=== PATIENT | male | born 1970 | race Caucasian/White ===

== ENCOUNTER 2018-01-26 07:51 | Emergency (ER) | payer MEDICAID ==
[~2018-01-26] VITALS: Ht 185.4 cm; Wt 100.0 kg
[~2018-01-26 07:51] MED LIST: CLIN-79 PO; FOLI1TAB16 PO; THI100T PO
[2018-01-26 07:53] VITALS: BP 151/104
[2018-01-26] MEDS ORDERED: CefTRIAXone 250MG inj IM ONE (08:10)
[2018-01-26] MEDS ORDERED: DOXY100C43 PO (08:10)
[2018-01-26] MEDS ORDERED: CefTRIAXone 250MG IM Kit w/LIDOcaine IM ONE (08:15)
[2018-01-26 08:19] LABS: CLARITY,URINE CLEAR (Clear); COLOR,URINE YELLOW (Yellow); GLUCOSE, URINE NEGATIVE (Neg); KETONES,URINE NEGATIVE (Neg); LEUKOCYTE ESTERASE ,URINE NEGATIVE (Neg); NITRITES, URINE NEGATIVE (Neg); OCCULT BLOOD,URINE NEGATIVE (Neg); PROTEIN,URINE NEGATIVE (Neg); UROBILINOGEN,URINE 0.2 E.U/dL (0.2-1.0)
[2018-01-26 08:21] LABS: UA COLLECTION TYPE CLN CATCH MIDSTREAM
== END 2018-01-26 08:42 | disposition home or self-care (01) ==
LOC: ER 07:52
DX: A64 Unspecified sexually transmitted disease (principal); F12.10 Cannabis abuse, uncomplicated; F15.10 Other stimulant abuse, uncomplicated; Z79.899 Other long term (current) drug therapy
CPT/HCPCS: 36415; 81003; 87491; 87591; 96372; 99284; J0696

== ENCOUNTER 2020-06-22 15:22 | Emergency (ER) | payer MEDICAID ==
[~2020-06-22] VITALS: Ht 185.4 cm; Wt 109.1 kg
[~2020-06-22 15:22] MED LIST changes: -CLIN-79 PO; +CLIN150C8 PO
[2020-06-22] MEDS ORDERED: normal saline 1000ML IV soln IV ONE (15:45)
[2020-06-22] MEDS ORDERED: acetaminophen 325mg tablet PO STA (16:09)
[2020-06-22 16:17] LABS: BASOPHILS % (AUTO) 0.2 % (0-1); EOSINOPHILS % (AUTO) 0.1 % (0-6); HEMATOCRIT 46.7 % (42.0-52.0); HEMOGLOBIN 15.8 g/dl (14.0-17.9); LYMPHOCYTES % (AUTO) 8.1 % (21-51); MEAN CORPUSCULAR HEMOGLOBIN 27.9 PG (27.0-31.0); MEAN CORPUSCULAR HGB CONC 33.9 g/dL (33.0-36.5); MEAN CORPUSCULAR VOLUME 82.5 FL (78-98); MEAN PLATELET VOLUME 8.9 FL (7.4-10.4); MONOCYTES # (AUTO) 1.2 X10'3 (0-0.9); MONOCYTES % (AUTO) 9.8 % (2-12); NEUTROPHILS # (AUTO) 9.8 X10'3 (1.8-7.7); NEUTROPHILS % (AUTO) 81.8 % (42-75); PLATELET COUNT 258 X10'3 (140-440); RED BLOOD COUNT 5.65 X10'6 (4.70-6.10); RED CELL DISTRIBUTION WIDTH 13.4 % (11.5-14.5)
[2020-06-22 16:27] LABS: ALANINE AMINOTRANSFERASE 45 U/L (12-78); ALBUMIN 3.7 G/DL (3.4-5.0); ALBUMIN/GLOBULIN RATIO 0.9 (1.1-1.5); ALKALINE PHOSPHATASE 109 IU/L (46-116); ANION GAP 7 (8-16); ASPARTATE AMINO TRANSFERASE 18 U/L (10-37); BLOOD UREA NITROGEN 12 MG/DL (7-18); BUN/CREATININE RATIO 10.9 (5.4-32.0); CALCIUM 9.4 MG/DL (8.5-10.1); CHLORIDE 98 MMOL/L (99-107); GLUCOSE 130 MG/DL (70-104); POTASSIUM 3.9 MMOL/L (3.5-5.1); SODIUM 131 MMOL/L (135-145); TOTAL CARBON DIOXIDE 25.6 MMOL/L (24-32); TOTAL PROTEIN 7.7 G/DL (6.4-8.2); eGFR 71 ML/MIN
[2020-06-22] MEDS ORDERED: azithromycin/NS 500mg/250ml 250 ML IV ONE (16:40)
[2020-06-22] MEDS ORDERED: CefTRIAXone 2gm/D5W 50ml 50 ML IV ONE (16:40)
--- NOTE | 2020-06-22 18:40 | NUR ---
CALL TONI FOR RIDD [phone]
[2020-06-22 19:37] VITALS: BP 121/79
== END 2020-06-22 19:38 | disposition home or self-care (01) ==
LOC: ER 15:22
DX: B34.9 Viral infection, unspecified (principal); R50.9 Fever, unspecified; R52 Pain, unspecified; Z20.828 Contact with and (suspected) exposure to other viral communicable diseases; F12.90 Cannabis use, unspecified, uncomplicated; F15.90 Other stimulant use, unspecified, uncomplicated; Z98.890 Other specified postprocedural states; Z79.2 Long term (current) use of antibiotics; Z79.899 Other long term (current) drug therapy
CPT/HCPCS: 36415; 71045; 80053; 83605; 84145; 85025; 87040; 87491; 87591; 87635; 93005; 96361; 96365; 96375; 99285; C9803; J0456; J0696; J7030; 96368

== ENCOUNTER 2020-08-27 23:43 | Emergency (ER) | payer MEDICAID ==
[~2020-08-27] VITALS: Ht 185.4 cm; Wt 102.0 kg
[2020-08-28 00:12] LABS: EOSINOPHILS # (AUTO) 0.2 X10'3 (0-0.9); HEMOGLOBIN 14.2 g/dl (14.0-17.9); MONOCYTES # (AUTO) 1.1 X10'3 (0-0.9); WHITE BLOOD COUNT 9.9 X10'3 (4.5-11.0)
[2020-08-28 00:13] LABS: BASOPHILS % (AUTO) 0.4 % (0-1); EOSINOPHILS % (AUTO) 2.2 % (0-6); HEMATOCRIT 41.9 % (42.0-52.0); LYMPHOCYTES # (AUTO) 2.2 X10'3 (1.1-4.8); LYMPHOCYTES % (AUTO) 22.4 % (21-51); MEAN CORPUSCULAR HEMOGLOBIN 28.5 PG (27.0-31.0); MEAN PLATELET VOLUME 8.9 FL (7.4-10.4); MONOCYTES % (AUTO) 10.8 % (2-12); NEUTROPHILS # (AUTO) 6.3 X10'3 (1.8-7.7); NEUTROPHILS % (AUTO) 64.2 % (42-75); PLATELET COUNT 276 X10'3 (140-440); RED BLOOD COUNT 4.98 X10'6 (4.70-6.10); RED CELL DISTRIBUTION WIDTH 13.5 % (11.5-14.5)
[2020-08-28 00:24] LABS: ALANINE AMINOTRANSFERASE 51 U/L (12-78); ALBUMIN 3.8 G/DL (3.4-5.0); ALKALINE PHOSPHATASE 109 IU/L (46-116); ANION GAP 6 (8-16); ASPARTATE AMINO TRANSFERASE 21 U/L (10-37); BILIRUBIN,TOTAL 1.2 MG/DL (0.1-1.0); BLOOD UREA NITROGEN 18 MG/DL (7-18); BUN/CREATININE RATIO 16.4 (5.4-32.0); CALCIUM 9.6 MG/DL (8.5-10.1); CHLORIDE 104 MMOL/L (99-107); GLUCOSE 99 MG/DL (70-104); POTASSIUM 4.1 MMOL/L (3.5-5.1); SODIUM 139 MMOL/L (135-145); TOTAL CARBON DIOXIDE 29.3 MMOL/L (24-32); TOTAL PROTEIN 7.6 G/DL (6.4-8.2); eGFR 71 ML/MIN
[2020-08-28] MEDS ORDERED: TETanus/Pertussis (Acell)/Diphther VAC/PF (Tdap-Adult) 0.5ml syringe IMVAC ONE (01:55)
[2020-08-28] MEDS ORDERED: LIDOcaine 1% W/epiNEPHrine 1:200,000 10ml vial IJ ONE (01:55)
[2020-08-28] MEDS ORDERED: HYDROcodone/acetaminophen 10/325mg tab PO ONE (01:55)
[2020-08-28] MEDS ORDERED: sulfamethoxazole/trimethoprim DS (800/160mg) tablet PO ONE (01:55)
[2020-08-28] MEDS ORDERED: naproxen 500mg tablet PO ONE (01:55)
[2020-08-28] MEDS ORDERED: LIDOcaine 1% w/epiNEPHrine 1:200,000 30ml vial IJ ONE (02:00)
--- NOTE | 2020-08-28 02:21 | NUR ---
PT STATES THAT HE HAS A SAFE RIDE HOME.
[2020-08-28] MEDS ORDERED: chlordiazePOXIDE 25mg capsule PO ONE ×2 (02:40→03:10)
[2020-08-28] MEDS ORDERED: LORazepam 1 MG tablet PO ONE (02:40)
[2020-08-28] MEDS ORDERED: HYDR-3965 PO (02:42)
[2020-08-28] MEDS ORDERED: SULF1TAB49 PO (02:42)
[2020-08-28] MEDS ORDERED: NAPR-56 PO (02:42)
[2020-08-28 03:45] VITALS: BP 135/65
--- NOTE | 2020-08-28 03:52 | NUR ---
TROPOPIN NEG 2ND
== END 2020-08-28 03:53 | disposition home or self-care (01) ==
LOC: ER 23:44
DX: L02.412 Cutaneous abscess of left axilla (principal); R07.9 Chest pain, unspecified; F15.10 Other stimulant abuse, uncomplicated; F12.10 Cannabis abuse, uncomplicated; Z79.899 Other long term (current) drug therapy
CPT/HCPCS: 10060; 36415; 71045; 80053; 83880; 84484; 85025; 90471; 90715; 93005; 99285

== ENCOUNTER 2020-12-26 11:58 | Emergency (ER) | payer MEDICAID ==
[~2020-12-26] VITALS: Ht 185.4 cm; Wt 100.0 kg
[2020-12-26 12:00] VITALS: BP 141/82
[2020-12-26] MEDS ORDERED: azithromycin 250mg tablet PO ONE (13:00)
[2020-12-26] MEDS ORDERED: CEFTRIAXONE 500 MG VIAL IM ONE (13:00)
[2020-12-26 13:10] LABS: CLARITY,URINE CLOUDY (Clear); COLOR,URINE YELLOW (Yellow); GLUCOSE, URINE NEGATIVE (Neg); KETONES,URINE NEGATIVE (Neg); LEUKOCYTE ESTERASE ,URINE NEGATIVE (Neg); NITRITES, URINE NEGATIVE (Neg); OCCULT BLOOD,URINE NEGATIVE (Neg); PH,URINE 5.5 (4.8-8.0); PROTEIN,URINE 30 mg/dl (Neg); UROBILINOGEN,URINE 0.2 E.U/dL (0.2-1.0)
[2020-12-26 13:11] LABS: UA COLLECTION TYPE CLN CATCH MIDSTREAM
[2020-12-26 13:17] LABS: MUCUS STRANDS MANY /LPF (Neg); SQUAMOUS EPITHELIAL CELL,UR FEW /LPF (FEW)
[2020-12-26 13:18] LABS: BACTERIA,URINE 1+ /HPF (Neg); RBC,URINE 0-2 /HPF (0-2)
[2020-12-26 13:19] LABS: FINE GRANULAR CAST 0-3 /LPF (NEGATIVE)
== END 2020-12-26 13:55 | disposition home or self-care (01) ==
LOC: ER 11:59
DX: A64 Unspecified sexually transmitted disease (principal); F12.90 Cannabis use, unspecified, uncomplicated; F15.90 Other stimulant use, unspecified, uncomplicated; Z79.899 Other long term (current) drug therapy
CPT/HCPCS: 36415; 81001; 87491; 96372; 99283

== ENCOUNTER 2021-05-20 18:13 | Emergency (ER) | payer MEDICAID ==
[~2021-05-20] VITALS: Ht 185.4 cm; Wt 100.0 kg
[2021-05-20 18:23] VITALS: BP 125/85
[2021-05-20 18:42] LABS: BASOPHILS % (AUTO) 0.5 % (0-1); EOSINOPHILS # (AUTO) 0.2 X10'3 (0-0.9); EOSINOPHILS % (AUTO) 1.8 % (0-6); HEMATOCRIT 50.1 % (42.0-52.0); HEMOGLOBIN 16.9 g/dl (14.0-17.9); LYMPHOCYTES # (AUTO) 2.3 X10'3 (1.1-4.8); MEAN CORPUSCULAR HEMOGLOBIN 28.3 PG (27.0-31.0); MEAN CORPUSCULAR HGB CONC 33.6 g/dL (33.0-36.5); MEAN CORPUSCULAR VOLUME 84.2 FL (78-98); MEAN PLATELET VOLUME 9.4 FL (7.4-10.4); MONOCYTES % (AUTO) 10.6 % (2-12); NEUTROPHILS # (AUTO) 5.9 X10'3 (1.8-7.7); NEUTROPHILS % (AUTO) 63.1 % (42-75); PLATELET COUNT 353 X10'3 (140-440); RED BLOOD COUNT 5.95 X10'6 (4.70-6.10); RED CELL DISTRIBUTION WIDTH 13.8 % (11.5-14.5); WHITE BLOOD COUNT 9.4 X10'3 (4.5-11.0)
[2021-05-20 18:58] LABS: ALANINE AMINOTRANSFERASE 83 U/L (12-78); ALBUMIN 3.9 G/DL (3.4-5.0); ALBUMIN/GLOBULIN RATIO 0.9 (1.1-1.5); ALKALINE PHOSPHATASE 129 IU/L (46-116); ANION GAP 10 (8-16); ASPARTATE AMINO TRANSFERASE 40 U/L (10-37); BILIRUBIN,TOTAL 1.3 MG/DL (0.1-1.0); BLOOD UREA NITROGEN 30 MG/DL (7-18); CALCIUM 9.3 MG/DL (8.5-10.1); CHLORIDE 104 MMOL/L (99-107); CREATININE 1.25 MG/DL (0.60-1.10); GLUCOSE 111 MG/DL (70-104); POTASSIUM 4.8 MMOL/L (3.5-5.1); SODIUM 139 MMOL/L (135-145); TOTAL CARBON DIOXIDE 25.4 MMOL/L (24-32); TOTAL PROTEIN 8.1 G/DL (6.4-8.2); eGFR 61 ML/MIN
[2021-05-20] MEDS ORDERED: aspirin 81mg tab.chew PO ONE (19:55)
== END 2021-05-20 23:27 | disposition home or self-care (01) ==
LOC: ER 18:13
DX: R07.9 Chest pain, unspecified (principal); R11.0 Nausea; R06.02 Shortness of breath; F17.210 Nicotine dependence, cigarettes, uncomplicated; F12.10 Cannabis abuse, uncomplicated; F15.10 Other stimulant abuse, uncomplicated
CPT/HCPCS: 36415; 71045; 80053; 83880; 84484; 85025; 93005; 99285

== ENCOUNTER 2022-03-13 22:29 | Emergency (ER) | payer MEDICAID ==
[~2022-03-13] VITALS: Ht 185.4 cm; Wt 103.3 kg
[~2022-03-13 22:29] MED LIST changes: -FOLI1TAB16 PO; +FOLI1TAB27 PO
[2022-03-13 23:06] VITALS: BP 148/122
[2022-03-14] MEDS ORDERED: ketorolac trometh inj. 60 MG/2 ML VIAL IM ONE (02:35)
[2022-03-14] MEDS ORDERED: PENI500T2 PO (06:57)
== END 2022-03-14 07:34 | disposition home or self-care (01) ==
LOC: ER 22:30
DX: K04.7 Periapical abscess without sinus (principal); F12.90 Cannabis use, unspecified, uncomplicated; F15.90 Other stimulant use, unspecified, uncomplicated; Z86.711 Personal history of pulmonary embolism; Z79.899 Other long term (current) drug therapy
CPT/HCPCS: 96372; 99283; J1885

== ENCOUNTER 2022-12-19 05:17 | Emergency (ER) | payer MEDICAID ==
[~2022-12-19] VITALS: Ht 185.4 cm; Wt 102.3 kg
[2022-12-19] MEDS ORDERED: CefTRIAXone 2gm/D5W 50ml BAG 50 ML IV ONE (09:00)
[2022-12-19 09:22] VITALS: BP 140/95
[2022-12-19 09:50] LABS: ALANINE AMINOTRANSFERASE 30 U/L (12-78); ALBUMIN 3.6 G/DL (3.4-5.0); ALBUMIN/GLOBULIN RATIO 1.1 (1.1-1.5); ALKALINE PHOSPHATASE 104 IU/L (46-116); ANION GAP 7 (8-16); ASPARTATE AMINO TRANSFERASE 21 U/L (10-37); BILIRUBIN,TOTAL 0.7 MG/DL (0.1-1.0); BLOOD UREA NITROGEN 23 MG/DL (7-18); BUN/CREATININE RATIO 21.5 (10.0-20.0); CALCIUM 9.1 MG/DL (8.5-10.1); CHLORIDE 104 MMOL/L (99-107); CREATININE 1.07 MG/DL (0.60-1.10); GLUCOSE 95 MG/DL (70-104); POTASSIUM 3.8 MMOL/L (3.5-5.1); SODIUM 140 MMOL/L (135-145); TOTAL CARBON DIOXIDE 28.9 MMOL/L (24-32); TOTAL PROTEIN 6.9 G/DL (6.4-8.2); eGFR 73 ML/MIN
[2022-12-19 09:53] LABS: BASOPHILS % (AUTO) 0.5 % (0-1); EOSINOPHILS # (AUTO) 0.2 X10'3 (0-0.9); HEMATOCRIT 40.7 % (42.0-52.0); HEMOGLOBIN 13.8 g/dl (14.0-17.9); LYMPHOCYTES # (AUTO) 2.4 X10'3 (1.1-4.8); LYMPHOCYTES % (AUTO) 32.2 % (21-51); MEAN CORPUSCULAR HEMOGLOBIN 28.3 PG (27.0-31.0); MEAN CORPUSCULAR HGB CONC 33.9 g/dL (33.0-36.5); MEAN CORPUSCULAR VOLUME 83.5 FL (78-98); MEAN PLATELET VOLUME 8.9 FL (7.4-10.4); MONOCYTES # (AUTO) 0.7 X10'3 (0-0.9); MONOCYTES % (AUTO) 9.5 % (2-12); NEUTROPHILS % (AUTO) 54.8 % (42-75); PLATELET COUNT 287 X10'3 (140-440); RED BLOOD COUNT 4.88 X10'6 (4.70-6.10); RED CELL DISTRIBUTION WIDTH 13.4 % (11.5-14.5); WHITE BLOOD COUNT 7.3 X10'3 (4.5-11.0)
[2022-12-19] MEDS ORDERED: SULF1TAB49 PO (10:27)
[2022-12-19] MEDS ORDERED: IBUP-1986 PO (10:27)
== END 2022-12-19 10:58 | disposition home or self-care (01) ==
LOC: ER 05:18
DX: L03.115 Cellulitis of right lower limb (principal); F12.10 Cannabis abuse, uncomplicated; F15.10 Other stimulant abuse, uncomplicated; F17.200 Nicotine dependence, unspecified, uncomplicated; Z88.6 Allergy status to analgesic agent; Z79.899 Other long term (current) drug therapy
CPT/HCPCS: 36415; 73630; 80053; 85025; 96365; 99284; J0696

== ENCOUNTER 2025-03-18 22:55 | Emergency (ER) | payer MEDICAID ==
[~2025-03-18] VITALS: Ht 185.4 cm; Wt 109.1 kg
[~2025-03-18 22:55] MED LIST changes: +CLIN-214 PO; -CLIN150C8 PO; +IBUP-1986 PO
[2025-03-18 23:02] VITALS: TEMP 97.8
--- NOTE | 2025-03-18 23:06 | ELECTROCARDIOGRAPH REPORT ---
[facility] Test Date: 2025-03-18 Test Time: 23:00:16 Pat Name: AME ALARCON Department: EMERGENCY ROOM Room: Gender: M Lunchroom Worker: LILO : 1970 Requested By: ARMAAN ROGEL Order Number: [id number] Reading MD: Measurements Intervals [place] Rate: 89 P: 78 CT: 150 QRS: -63 QRSD: 94 T: 52 QT: 352 QTc: 429 Interpretive Statements Sinus rhythm LAD, consider left anterior fascicular block Please click the below link to view image of tracing.
[2025-03-18 23:21] LABS: BASOPHILS % (AUTO) 0.2 % (0-1); EOSINOPHILS # (AUTO) 0.1 X10'3 (0-0.9); EOSINOPHILS % (AUTO) 1.3 % (0-6); HEMOGLOBIN 13.7 g/dl (14.0-17.9); LYMPHOCYTES # (AUTO) 1.6 X10'3 (1.1-4.8); LYMPHOCYTES % (AUTO) 13.8 % (21-51); MEAN CORPUSCULAR HEMOGLOBIN 27.5 PG (27.0-31.0); MEAN CORPUSCULAR HGB CONC 33.5 g/dL (33.0-36.5); MEAN CORPUSCULAR VOLUME 82.3 FL (78-98); MEAN PLATELET VOLUME 9.1 FL (7.4-10.4); MONOCYTES # (AUTO) 1.3 X10'3 (0-0.9); MONOCYTES % (AUTO) 11.7 % (2-12); NEUTROPHILS # (AUTO) 8.3 X10'3 (1.8-7.7); PLATELET COUNT 260 X10'3 (140-440); RED BLOOD COUNT 4.98 X10'6 (4.70-6.10); RED CELL DISTRIBUTION WIDTH 13.7 % (11.5-14.5); WHITE BLOOD COUNT 11.4 X10'3 (4.5-11.0)
--- NOTE | 2025-03-18 23:22 | RADIOLOGY REPORT ---
CHEST RADIOGRAPH REASON FOR EXAM: CP COMPARISON: None TECHNIQUE: One view of the chest is provided FINDINGS: The cardiomediastinal silhouette is within normal limits for technique. There is no focal a irspace disease. There is no significant pleural effusion. No acute bony abnormality is identified. IMPRESSION: No radiographic evidence of acute cardiopulmonary process.
[2025-03-18 23:38] LABS: ALBUMIN 3.6 G/DL (3.4-5.0); ANION GAP 10 (8-16); BLOOD UREA NITROGEN 20 MG/DL (7-18); BUN/CREATININE RATIO 17.5 (10.0-20.0); CHLORIDE 105 MMOL/L (99-107); CREATININE 1.14 MG/DL (0.60-1.10); GLUCOSE 103 MG/DL (70-104); POTASSIUM 3.8 MMOL/L (3.5-5.1); PRO BRAIN NATRIURETIC PEPTIDE 44 PG/ML (0-125); SODIUM 143 MMOL/L (135-145); TOTAL CARBON DIOXIDE 28.5 MMOL/L (24-32); eCRCL 83 ML/MIN; eGFR 67 ML/MIN
--- NOTE | 2025-03-19 00:26 | Physician Documentation ---
History of Present Illness ~ Chief Complaint: Chest Pain Stated Complaint: CHEST PAIN Time Seen by MD: 00:24 Primary Medical Doctor: Dr. Ventura Mode of Arrival: POV HPI 55-year-old male presenting with chest pain and right toe pain He tells me that earlier today, he had an episode where he was having a sensation of tightness in his chest. A CT has been very stressed recently and wonders if it was related to stress. He did feel short of breath at that time. Currently he denies any chest pain, shortness of breath, dizziness, or other related symptoms. No fevers or productive cough. No leg pain or swelling. He also reports pain to the 1st toe in his right foot. He tells me that over the past several days it has become red and swollen. Medication Reconciliation Allergies: Coded Allergies: ketorolac (Verified Allergy, Intermediate, SORE ARM FOR DAYS, 12/19/22) Scheduled Cephalexin*Monohydrate* (Keflex*), 1 CAP PO Q8H Clindamycin HCl (Clindamycin HCl CAPSULE), 3 CAP PO TID Folic Acid* (Folic Acid*), 2 MG PO DAILY Ibuprofen (Ibuprofen), 1 TAB PO Q8H Sulfamethoxazole/Trimethoprim (Bactrim Ds Tablet), 1 TAB PO Q12H Thiamine Hcl (Thiamine Hcl), 100 MG PO DAILY Past Medical History Past Medical History: Pulmonary Embolism, [place] Past Surgical History: noncontributory, other Alcohol Use: None Drug Use: marijuana, methamphetamine Lives with: Family Lives In: Home Review of Systems Constitutional: Denies: fever Respiratory: Reports: shortness of breath Cardiovascular: Reports: chest pain Gastrointestinal: Denies: abdominal pain Musculoskeletal: Reports: pain, swelling Physical Exam Vital Signs: Temperature: 97.8, Source: Oral, Heart Rate: 79, Respiratory Rate: 16, BP: 141/90, Pulse Oximetry: 98, Weight: 109.090 Physical Exam General: This is a pleasant and mildly anxious appearing middle-aged man HEENT: Atraumatic, oropharynx is moist Heart: Regular rate and rhythm, normal-appearing peripheral perfusion Lungs: Clear breath sounds bilateral, normal work of breathing, normal oxygen saturation on room air Abdomen: Soft, nondistended, nontender all quadrants Extremities: Warm and well-perfused. No lower extremity edema or posterior calf or thigh tenderness. Right foot: The 1st toe, is swollen and erythematous on the dorsal surface and has mild generalized tenderness. There is an open wound at the base of the toe between the 1st and 2nd digits. No purulent drainage at this site. No streaking redness up the foot or leg. Neuro: Alert and oriented, no focal deficits Psychiatric: Appears mildly anxious, but is otherwise pleasant and cooperative with exam Progress Results/Orders Results/Orders Orders - ARMAAN ROGEL MD Chest,Single View (03/18/25 23:04) Monitor (03/18/25 23:04) Saline Lock (03/18/25 23:04) Oxygen (03/18/25 23:04) Completed Orders - ARMAAN ROGEL MD Chest,Single View (03/18/25 23:04) Cbc/Diff (03/18/25:04) BMP (03/18/25 23:04) PBNP (03/18/25 23:04) Electrocardiogram (03/18/25 23:04) Hs Troponin I W Calculations (03/18/25 23:04) Hs Troponin I W Calculations (03/19/25 01:04) Ceftriaxone Im Kit W/Lidocaine (Rocephin (03/19/25 00:50) Mupirocin Ointment (Bactroban Ointment) (03/19/25 02:37) Medications Received in ER Medications (Trade) Dose Ordered Sig/Willy Route PRN Reason Start Time Stop Time Status Last Admin Dose Admin (Rocephin 1GM IM kit (w/lidocaine diluent)) 1,000 mg ONCE ONCE IM 03/19/25 00:50 03/19/25 00:51 DC 03/19/25 01:06 1,000 MG (Bactroban ointment) 1 applic ONCE STAT TP 03/19/25 02:37 03/19/25 02:38 DC 03/19/25 02:44 1 APPLIC Vital Signs 03/18/25 03/19/25 03/19/25 03/19/25 23:02 00:02 00:07 01:08 Temp 97.8 Pulse 88 79 75 Resp 18 18 16 16 B/P (MAP) 148/92 141/90 (107) 139/94 (109) Pulse Ox 99 98 98 O2 Flow Rate 0 03/19/25 02:45 Pulse 77 Resp 16 B/P (MAP) 147/99 Pulse Ox 99 Laboratory Tests Test 03/18/25 23:03 03/19/25 01:29 White Blood Count 11.4 H Red Blood Count 4.98 Hemoglobin 13.7 L Hematocrit 41.0 L Mean Corpuscular Volume 82.3 Mean Corpuscular Hemoglobin 27.5 Mean Corpuscular Hemoglobin Concent 33.5 Red Cell Distribution Width 13.7 Platelet Count 260 Mean Platelet Volume 9.1 Neutrophils (%) (Auto) 73.0 Lymphocytes (%) (Auto) 13.8 L Monocytes (%) (Auto) 11.7 Eosinophils (%) (Auto) 1.3 Basophils (%) (Auto) 0.2 Neutrophils # (Auto) 8.3 H Lymphocytes # (Auto) 1.6 Monocytes # (Auto) 1.3 H Eosinophils # (Auto) 0.1 Basophils # (Auto) 0.0 CBC Comment Sodium Level 143 Potassium Level 3.8 Chloride Level 105 Carbon Dioxide Level 28.5 Anion Gap 10 Blood Urea Nitrogen 20 H Creatinine 1.14 H Estimated GFR/1.73 m2 67 BUN/Creatinine Ratio 17.5 Glucose Level 103 Calcium Level 9.0 Troponin I High Sensitivity 6 6 Pro-B-Type Natriuretic Peptide 44 Albumin 3.6 Chemistry Comments Troponin I High Sens Percent Delta 0 Troponin I Hi Sens Absolute Change 0 EKG/XRAY/CT/US/VASC/MRI EKG : Additional Comment I personally interpreted the EKG and this shows: Sinus rhythm, rate 89, no STEMI or acute ischemic changes Chest X-Ray : Additional Comments I personally reviewed the x-ray, and it shows: No focal consolidation, pulmonary edema or widened mediastinum Medical Decision Making Differential Dx:Considerations: Include: angina, aortic dissection, chest wall pain, cholelithiasis, CHF, costochondritis, pulmonary embolus Additional Information Differential includes anxiety or stress reaction. Differential for the toe includes cellulitis, abscess, septic arthritis, gout Assessment The patient presents with chest pain, which per his history and exam seems most consistent with anxiety or a stress reaction. His workup was unremarkable incl uding no evidence of ACS, no evidence of other dangerous lung process. He is currently asymptomatic. I do not feel that he requires admission for further cardiac testing at this time. He can follow up as an outpatient with his primary care clinic to discuss whether he needs a stress test or other heart testing. Regarding his toe, he clearly has cellulitis to the toe and an open wound between his toes as the source of the infection. He was given a shot of IM ceftriaxone as well as mupirocin for topical treatment. He will be discharged with Bactrim and Keflex. Return precautions given if he does develop worsening signs of infection. Departure Time of Disposition: 02:37 Disposition: 01 HOME / SELF CARE / HOMELESS Impression: Primary Impression: Chest pain Additional Impression: Toe infection Discharge Instructions: Cellulitis, Adult, Nonspecific Chest Pain, Adult Referrals: NO PRIMARY CARE PROVIDER (PCP) Prescriptions Cephalexin*Monohydrate* (Keflex*) 500 Mg Capsule 1 CAP PO Q8H for 10 Days, #30 CAP Prov: ARMAAN ROGEL MD 03/19/25 Sulfamethoxazole/Trimethoprim (Bactrim Ds Tablet) 800 Mg-160 Mg Tablet 1 TAB PO Q12H for 10 Days, #20 TAB Prov: ARMAAN ROGEL MD 03/19/25 Education Educated: Patient Educated regarding: diagnosis, treatment, need for follow up Signature Scribe Signature: [email or web address] Attestation: ARMAAN Springer MD Mar 19, 2025 00:26
[2025-03-19] MEDS: CefTRIAXone 1000mg IM Kit (w/lidocaine diluent) IM ONE (01:06)
[2025-03-19] MEDS ORDERED: CEPH-585 PO (02:39)
[2025-03-19] MEDS ORDERED: SULF1TAB49 PO (02:39)
[2025-03-19] MEDS: mupirocin 2% ointment 22GM TP STA (02:44)
[2025-03-19 02:45] VITALS: BP 147/99; PULSE 77; RESP 16; O2SAT 99
== END 2025-03-19 02:48 | disposition home or self-care (01) ==
LOC: ER 22:55
DX: R07.89 Other chest pain (principal); L08.9 Local infection of the skin and subcutaneous tissue, unspecified; F12.90 Cannabis use, unspecified, uncomplicated; F15.90 Other stimulant use, unspecified, uncomplicated; Z86.711 Personal history of pulmonary embolism
CPT/HCPCS: 36415; 71045; 80048; 83880; 84484; 85025; 93005; 96372; 99285; J0696